=== PATIENT | female | born 1940 | race Caucasian/White ===

== ENCOUNTER → 2021-05-15 | Outpatient (CLI) | payer MEDICARE, BC ==
--- NOTE | 2021-05-15 10:46 | RAD ---
EXAM: DUAL ENERGY X-RAY ABSORPTIOMETRY (DEXA). HISTORY: Postmenopausal screening. FINDINGS: The lowest measured T-score is -3.7 in the right femoral neck, based on a bone mineral dens ity of 0.468 g/cm^2. Refer to the worksheets for full detail. No comparison examinations are available. IMPRESSION: 1. Osteoporosis. Bone mineral density yields a T-score of -2.5 or less. Fracture risk is high. 2. FRAX report: Not calculated. METHODOLOGY: Dual energy x-ray absorptiometry was performed to measure bone mineral density. The foll owing analysis is based on the 2019 Official Positions of the International Society for Clinical Dens itometry: Measurements of the hips and the average of L1-L4 are preferred. When the spine and/or hip cannot be feasibly measured or interpreted, or in the setting of hyperparathyroidism, distal radial bone minera l density may be measured. The lumbar spine T-score is based on the average bone mineral density of L1-L4. In the setting of art ifact or anatomic abnormality, some lumbar levels may be excluded, and the remaining levels used for calculation. A single lumbar level is not used for diagnosis, and if only a single level is available for assessment, another anatomic site will be used to assign a diagnosis. The hip T-score is based on the bone mineral density measurement of the femoral neck or total proxima l femur of either side, whichever is lowest. Bilateral mean values are not used for diagnosis. The forearm T-score is derived from 33% of the distal radius of the nondominant forearm. Electronically signed by: Carrie Ibarra MD (05/15/2021 10:43 AM) [id number]
--- NOTE | 2021-05-16 16:54 | RAD ---
Digital Mammogram Bilateral History: Routine screening Technique: 2-D digital CC and MLO views were obtained. CAD - computer aided detection was utilize d. Comparison: Mammograms from 03/27/2018. Findings: Breast Tissue Density A: The breasts are almost entirely fatty density. There are no suspicious masses, malignant appearing calcifications, or areas of architectural distort ion. Impression: No evidence of malignancy. Assessment: BI-RADS Category 1: Negative. Recommendation: Routine screening mammograms. The patient will receive a letter with the results in the mail. Patient information will be entered i nto the mammography reminder system with a target recall date for the next mammogram. A reminder aparna er will be generated. Electronically signed by: Bethany Randle MD (05/16/2021 4:51 PM) [id number]
== END ==
LOC: MAMMO 09:18
PROVIDERS: ATTEND Specialist
DX: Z12.31 Encounter for screening mammogram for malignant neoplasm of breast (principal); M81.0 Age-related osteoporosis without current pathological fracture
CPT/HCPCS: 77067; 77080